=== PATIENT | female | born 1955 | race Hispanic/Latino ===

== ENCOUNTER 2017-05-02 12:42 | Outpatient (CLI) | payer BC ==
--- NOTE | 2017-05-02 13:22 | XRay Report ---
CHEST 2 VIEWS INDICATION: Cough, smoker. COMPARISON: 10/16/2013. FINDINGS: PA and lateral chest radiographs demonstrate normal cardiomediastinal silhouette. Clear lungs. Aortic knob calcifications. Demineralized bones with L1 kyphoplasty. CONCLUSION: No acute disease in the chest. Thank you for the opportunity to participate in this patient's care.
--- NOTE | 2017-05-04 15:05 | Mammography Report ---
BONE DENSITY STUDY: DEFINITIONS: BMD = Bone Mineral Density T-score = BMD related to mean peak bone mass of young adult (mean expressed in Standard Deviation) Z-score = Age matched BMD expressed in SD World Health Organization (WHO) Diagnostic Criteria Normal T-score > -1 SD Osteopenia T-score between -1 and -2.4 SD Osteoporosis T-score -2.5 SD or below FINDINGS: The weighted average BMD of lumbar spine L1-L4 is 1.020 with a T-score of -0.5. The weighted average BMD of hip is 0.896 with a T-score of -0.4. IMPRESSION: The patient's T-score is diagnostic for normal bone density and low relative risk for fracture. NOTE: BMD is not the only risk factor for fracture; also consider factors such as the patient's age, risk of falling, previous osteoporotic fracture, family history of osteoporotic fractures, current smoker, and low body weight. Trotter's triangle is a region of interest in femur, predominantly of trabecular bone. It is not a true anatomic site, and ISCD does not recommend its use clinically.
== END 2017-05-02 12:43 | disposition home or self-care (01) ==
LOC: XRAY 12:42
PROVIDERS: ATTEND Specialist
DX: R05 Cough (principal); M48.50XD Collapsed vertebra, not elsewhere classified, site unspecified, subsequent encounter for fracture with routine healing; I70.0 Atherosclerosis of aorta; F17.200 Nicotine dependence, unspecified, uncomplicated
CPT/HCPCS: 71020; 77080

== ENCOUNTER 2018-12-13 10:20 | Outpatient (CLI) | payer BC ==
--- NOTE | 2018-12-13 11:15 | XRay Report ---
CHEST 2 VIEWS INDICATION: Bronchitis. COMPARISON: 05/02/2017. FINDINGS: PA and lateral chest radiographs again demonstrate normal cardiomediastinal silhouette. Clear lungs. Stable demineralized bones with L1 kyphoplasty partially imaged. CONCLUSION: No acute disease in the chest. Thank you for the opportunity to participate in this patient's care.
== END 2018-12-13 10:21 | disposition home or self-care (01) ==
LOC: XRAY 10:20
PROVIDERS: ATTEND Specialist
DX: J40 Bronchitis, not specified as acute or chronic (principal); E78.00 Pure hypercholesterolemia, unspecified; K21.9 Gastro-esophageal reflux disease without esophagitis
CPT/HCPCS: 71046

== ENCOUNTER 2019-01-09 13:54 | Outpatient (CLI) | payer BC ==
--- NOTE | 2019-01-10 14:35 | Mammography Report ---
BILATERAL DIGITAL SCREENING MAMMOGRAM with CAD : 01/09/19 13:54:00 CLINICAL: Routine screening. COMPARISON:09/21/16 FINDINGS: The breasts are heterogeneously dense, which may obscure small masses. No mass, architectural distortion or suspicious calcifications. IMPRESSION: No mammographic evidence of malignancy. BI-RADS CATEGORY: 1 - - Negative RECOMMENDATION: Routine mammographic screening in one year. COMMENT: Patient follow-up letters are generated by our [employer] application.
== END 2019-01-09 13:55 | disposition home or self-care (01) ==
LOC: MAMMO 13:54
PROVIDERS: ATTEND Specialist
DX: Z12.31 Encounter for screening mammogram for malignant neoplasm of breast (principal); E78.00 Pure hypercholesterolemia, unspecified; K21.9 Gastro-esophageal reflux disease without esophagitis; M19.90 Unspecified osteoarthritis, unspecified site; Z90.49 Acquired absence of other specified parts of digestive tract; Z90.89 Acquired absence of other organs; Z90.710 Acquired absence of both cervix and uterus
CPT/HCPCS: 77067

== ENCOUNTER 2019-02-13 08:14 | Outpatient (CLI) | payer BC ==
[2019-02-13 09:05] LABS: Alanine Aminotransferase 21 units/L (7-56); BUN/Creatinine Ratio 23; Blood Urea Nitrogen 16 mg/dL (7-17); Calcium 9.4 mg/dL (8.4-10.2); Chol/HDL Ratio 4.25 %; HDL Cholesterol 43 mg/dL (40-59); Hemolysis Index 1; LDL Cholesterol,Direct 126 mg/dL (50-130)
== END 2019-02-13 08:15 | disposition home or self-care (01) ==
LOC: LAB 08:14
PROVIDERS: ATTEND Internal Medicine Cardiovascular Disease
DX: I25.119 Atherosclerotic heart disease of native coronary artery with unspecified angina pectoris (principal); E78.5 Hyperlipidemia, unspecified; E78.00 Pure hypercholesterolemia, unspecified; K21.9 Gastro-esophageal reflux disease without esophagitis; M19.90 Unspecified osteoarthritis, unspecified site; Z90.49 Acquired absence of other specified parts of digestive tract; Z79.899 Other long term (current) drug therapy; Z90.89 Acquired absence of other organs; Z90.710 Acquired absence of both cervix and uterus
CPT/HCPCS: 36415; 80053; 80061

== ENCOUNTER 2019-05-22 12:53 | Outpatient (CLI) | payer BC ==
--- NOTE | 2019-05-22 13:36 | XRay Report ---
ROUTINE CHEST, TWO VIEWS: HISTORY: Cough. The trachea, heart, mediastinal contour, lung velasquez and bony thorax are unremarkable. No significant change since 12/13/18. IMPRESSION: Unremarkable chest x-ray.
== END 2019-05-22 12:54 | disposition home or self-care (01) ==
LOC: XRAY 12:53
PROVIDERS: ATTEND Nurse Practitioner Family
DX: R05 Cough (principal); E78.00 Pure hypercholesterolemia, unspecified; K21.9 Gastro-esophageal reflux disease without esophagitis; Z90.710 Acquired absence of both cervix and uterus; Z90.89 Acquired absence of other organs
CPT/HCPCS: 71046

== ENCOUNTER 2019-07-29 12:51 | Inpatient (IN) | payer BC ==
--- NOTE | 2019-07-29 13:04 | Event Note ---
ED Screening Note Date of service: 07/29/19 Time: 13:03 ED Screening Note: 64 y o female presents with chest pain with radiation to neck and arms x yesterday took a nitro pill last night, come relief This initial assessment/diagnostic orders/clinical plan/treatment(s) is/are subject to change based on patients health status, clinical progression and re- assessment by fellow clinical providers in the ED. Further treatment and workup at subsequent clinical providers discretion. Patient/guardian urged not to elope from the ED as their condition may be serious if not clinically assessed and managed. Initial orders include: protocol main side eval
[2019-07-29] MEDS ORDERED: ASPIRIN PO ONE (13:06)
[2019-07-29 13:25] LABS: Basophils # (Auto) 0.1 K/mm3 (0.0-0.1); Basophils % (Auto) 0.7 % (0.0-1.8); Eosinophils # (Auto) 0.2 K/mm3 (0.0-0.4); Eosinophils % (Auto) 1.6 % (0.0-4.3); Hematocrit 40.2 % (30.3-42.9); Lymphocytes # (Auto) 3.2 K/mm3 (1.2-5.4); Lymphocytes % (Auto) 30.8 % (13.4-35.0); Mean Corpuscular HGB Conc 35 % (30-34); Mean Corpuscular Volume 95 fl (79-97); Monocytes # (Auto) 0.8 K/mm3 (0.0-0.8); Monocytes % (Auto) 7.7 % (0.0-7.3); Platelet Count 289 K/mm3 (140-440); Red Blood Count 4.22 M/mm3 (3.65-5.03); Red Cell Distribution Width 14.6 % (13.2-15.2)
--- NOTE | 2019-07-29 13:50 | XRay Report ---
CHEST 1 VIEW INDICATION / CLINICAL INFORMATION: Chest Pain. COMPARISON: 05/22/2019 FINDINGS: SUPPORT DEVICES: None. HEART / MEDIASTINUM: No significant abnormality. LUNGS / PLEURA: No significant pulmonary or pleural abnormality. No pneumothorax. ADDITIONAL FINDINGS: No significant additional findings. IMPRESSION: No acute pulmonary or pleural abnormality. No change from 05/22/2019. Signer Name: Jonathan Nathan MD FACMeron Signed: 07/29/2019 1:45 PM Workstation Name: [id number]
[2019-07-29 13:52] LABS: BUN/Creatinine Ratio 21; Blood Urea Nitrogen 15 mg/dL (7-17); Calcium 9.4 mg/dL (8.4-10.2); Hemolysis Index 13
[2019-07-29] MEDS ORDERED: NITROSTAT SL PRN (14:50)
[2019-07-29] MEDS ORDERED: ZOFRAN IV PRN ×2 (14:50→17:03)
--- NOTE | 2019-07-29 14:52 | Emergency Department Report ---
ED Chest Pain HPI - General Chief Complaint: Chest Pain Stated Complaint: CHEST/NECK PAIN Time Seen by Provider: 07/29/19 13:02 Source: patient, RN notes reviewed, old records reviewed Mode of arrival: Wheelchair Limitations: No Limitations - History of Present Illness Initial Comments: This is a 64-year-old female. This patient is not known to this provider previously. Her primary care doctor is Dr. Dias. Her primary care prefabricator is Dr. Israel Solis. Past medical history includes ischemic heart disease, ischemic cardiomyopathy, on permanent antiplatelet therapy, including aspirin, and Plavix. The patient endorses compliance with her medications. She endorses nontraumatic central and left-sided chest pain, burning, that radiates to the back, arm and neck. There is no vomiting. There is positive diaphoresis. The symptoms are somewhat improved with sublingual nitroglycerin. No recent cardiac catheterization since 2015. No recent cardiac stress test. Denies DVT, pulmonary embolus risk factors. Endorses compliance with medications. Denies other complaints. MD Complaint: chest pain, other -: Gradual, hour(s) Onset: during rest Pain Location: substernal, left chest Pain Radiation: back, neck Severity: moderate Quality: tightness, aching Consistency: intermittent Improves With: nitroglycerin, rest Worsens With: nothing Treatments Prior to Arrival: aspirin, nitroglycerin Aspirin use within the Past 7 Days: (1) Yes - Related Data Home Medications Medication Instructions Recorded Confirmed Last Taken Ibuprofen [Motrin 800 MG tab] 800 mg PO TID 02/05/16 02/05/16 02/03/16 800mg Metoprolol Tartrate 25 mg PO BID 02/05/16 02/05/16 02/05/16 25mg Nitroglycerin [Nitrostat] 0.4 mg SL PRN PRN 02/05/16 02/05/16 02/03/16 0.4mg PARoxetine HCl [PARoxetine] 40 mg PO DAILY 02/05/16 02/05/16 02/05/16 40mg lamoTRIgine [Lamotrigine] 25 mg PO BID 02/05/16 02/05/16 02/05/16 25mg Previous Rx's Medication Instructions Recorded Last Taken Type Aspirin EC 325 mg PO QDAY #30 tablet 02/06/16 Unknown Rx AtorvaSTATin [Lipitor] 40 mg PO QHS #30 tablet 02/06/16 Unknown Rx Prasugrel [Effient] 10 mg PO QDAY #30 tablet 02/06/16 Unknown Rx Allergies Allergy/AdvReac Type Severity Reaction Status Date / Time codeine Allergy Vomiting Verified 11/09/13 15:37 Penicillins Allergy Itching, Verified 11/09/13 15:37 HIVES Sulfa (Sulfonamide Allergy Itching Verified 11/09/13 15:37 Antibiotics) HIVES Heart Score - HEART Score History: Highly suspicious EKG: Non-specific Age: 45-65 Risk factors: > 3 risk factors or hx of atherosclerotic disease Troponin: < normal limit HEART Score: 6 - Critical Actions Critical Actions: 4-6 pts:12-16.6% risk of adverse cardiac event. Should be admitted ED Review of Systems ROS: Stated complaint: CHEST/NECK PAIN Other details as noted in HPI Constitutional: denies: fever Eyes: denies: eye discharge ENT: denies: congestion Respiratory: denies: cough, wheezing Cardiovascular: chest pain Gastrointestinal: denies: vomiting Genitourinary: denies: dysuria Musculoskeletal: denies: back pain Skin: denies: lesions Neurological: denies: weakness Psychiatric: denies: anxiety ED Past Medical Hx - Past Medical History Hx Hypertension: No Hx Heart Attack/AMI: No Hx Congestive Heart Failure: No Hx Diabetes: No Hx GERD: Yes Hx Arthritis: Yes (back) Hx Seizures: Yes (10/14/13 - had one seizure) Hx Psychiatric Treatment: Yes (depression) Hx Asthma: No Hx COPD: No Additional medical history: 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 - Surgical History Hx Coronary Stent: Yes Hx Appendectomy: Yes Additional Surgical History: Hysterectomy and spinal tumor - Social History Smoking Status: Current Every Day Smoker Substance Use Type: None - Medications Home Medications: Home Medications Medication Instructions Recorded Confirmed Last Taken Type Ibuprofen [Motrin 800 MG tab] 800 mg PO TID 02/05/16 02/05/16 02/03/16 History 800mg Metoprolol Tartrate 25 mg PO BID 02/05/16 02/05/16 02/05/16 History 25mg Nitroglycerin [Nitrostat] 0.4 mg SL PRN PRN 02/05/16 02/05/16 02/03/16 History 0.4mg PARoxetine HCl [PARoxetine] 40 mg PO DAILY 03/09/1202/05/16 02/05/16 History 40mg lamoTRIgine [Lamotrigine] 25 mg PO BID 02/05/16 02/05/16 02/05/16 History 25mg Aspirin EC 325 mg PO QDAY #30 tablet 02/06/16 Unknown Rx AtorvaSTATin [Lipitor] 40 mg PO QHS #30 tablet 02/06/16 Unknown Rx Prasugrel [Effient] 10 mg PO QDAY #30 tablet 02/06/16 Unknown Rx ED Physical Exam - General Limitations: No Limitations General appearance: alert, in no apparent distress - Head Head exam: Present: atraumatic, normocephalic - Eye Eye exam: Present: normal appearance, EOMI. Absent: nystagmus - ENT ENT exam: Present: normal exam, normal orophraynx, mucous membranes moist, normal external ear exam - Neck Neck exam: Present: normal inspection, full ROM. Absent: tenderness, meningismus - Respiratory Respiratory exam: Present: normal lung sounds bilaterally. Absent: respiratory distress - Cardiovascular Cardiovascular Exam: Present: regular rate, normal rhythm, normal heart sounds. Absent: bradycardia, tachycardia, irregular rhythm, systolic murmur, diastolic murmur, rubs, gallop - GI/Abdominal GI/Abdominal exam: Present: soft. Absent: distended, tenderness, rigid, pulsat ile mass - Extremities Exam Extremities exam: Present: normal inspection, full ROM, other (2+ pulses noted in the bilateral upper, lower extremities. There is no long bony tenderness. The pelvis is stable. Muscular compartments are soft. There is no redness, pus, streaking or crepitus noted.). Absent: pedal edema, joint swelling, calf tenderness - Back Exam Back exam: Present: normal inspection, full ROM. Absent: tenderness, CVA tenderness (R), CVA tenderness (L), paraspinal tenderness, vertebral tenderness - Neurological Exam Neurological exam: Present: alert, oriented X3, normal gait, other (Extraocular movements are intact bilaterally. There is no facial droop. The tongue is midline. Patient speaking in full complete sentences. There is no dysphonia. Hearing is grossly intact bilaterally. Shoulder shrug is intact bilaterally. 5/5 strength bilateral upper, lower extremities. Sensation is intact to light touch bilateral upper, lower extremities.). Absent: motor sensory deficit - Psychiatric Psychiatric exam: Present: anxious - Skin Skin exam: Present: warm, dry, intact, normal color. Absent: rash ED Course Vital Signs 07/29/19 07/29/19 07/29/19 13:02 15:30 15:31 Temperature 98.4 F Pulse Rate 68 78 87 Respiratory 18 18 Rate Blood Pressure 150/63 145/62 Blood Pressure 145/72 [Right] O2 Sat by Pulse 99 100 Oximetry SHAYAN score - Shayan Score Age > 65: (0) No Aspirin use within the Past 7 Days: (1) Yes 3 or more CAD Risk Factors: (1) Yes 2 or more Angina events in past 24 hrs: (1) Yes Known CAD with more than 50% Stenosis: (1) Yes Elevated Cardiac Markers: (0) No ST Deviation Greater than 0.5mm: (0) No SHAYAN Score: 4 ED Medical Decision Making - Lab Data Result diagrams: 07/29/19 13:08 07/29/19 13:08 Vital Signs 07/29/19 07/29/19 07/29/19 13:02 15:30 15:31 Temperature 98.4 F Pulse Rate 68 78 87 Respiratory 18 18 Rate Blood Pressure 150/63 145/62 Blood Pressure 145/72 [Right] O2 Sat by Pulse 99 100 Oximetry Lab Results 07/29/19 07/29/19 07/29/19 Range/Units 13:08 13:08 15:02 WBC 10.4 (4.5-11.0) K/mm3 RBC 4.22 (3.65-5.03) M/mm3 Hgb 14.0 (10.1-14.3) gm/dl Hct 40.2 (30.3-42.9) % MCV 95 (79-97) fl MCH 33 H (28-32) pg MCHC 35 H (30-34) % RDW 14.6 (13.2-15.2) % Plt Count 289 (140-440) K/mm3 Lymph % (Auto) 30.8 (13.4-35.0) % Miller % (Auto) 7.7 H (0.0-7.3) % Eos % (Auto) 1.6 (0.0-4.3) % Baso % (Auto) 0.7 (0.0-1.8) % Lymph # 3.2 (1.2-5.4) K/mm3 Miller # 0.8 (0.0-0.8) K/mm3 Eos # 0.2 (0.0-0.4) K/mm3 Baso # 0.1 (0.0-0.1) K/mm3 Seg Neutrophils % 59.2 (40.0-70.0) % Seg Neutrophils # 6.1 (1.8-7.7) K/mm3 Sodium 141 (137-145) mmol/L Potassium 3.7 (3.6-5.0) mmol/L Chloride 103.1 (98-107) mmol/L Carbon Dioxide 20 L (22-30) mmol/L Anion Gap 22 mmol/L BUN 15 (7-17) mg/dL Creatinine 0.7 (0.7-1.2) mg/dL Estimated GFR > 60 ml/min BUN/Creatinine Ratio 21 % Glucose 128 H (65-100) mg/dL Calcium 9.4 (8.4-10.2) mg/dL Magnesium 1.90 (1.7-2.3) mg/dL Total Creatine Kinase 84 (30-135) units/L Troponin T < 0.010 (0.00-0.029) ng/mL 07/29/19 Range/Units 15:53 WBC (4.5-11.0) K/mm3 RBC (3.65-5.03) M/mm3 Hgb (10.1-14.3) gm/dl Hct (30.3-42.9) % MCV (79-97) fl MCH (28-32) pg MCHC (30-34) % RDW (13.2-15.2) % Plt Count (140-440) K/mm3 Lymph % (Auto) (13.4-35.0) % Miller % (Auto) (0.0-7.3) % Eos % (Auto) (0.0-4.3) % Baso % (Auto) (0.0-1.8) % Lymph # (1.2-5.4) K/mm3 Miller # (0.0-0.8) K/mm3 Eos # (0.0-0.4) K/mm3 Baso # (0.0-0.1) K/mm3 Seg Neutrophils % (40.0-70.0) % Seg Neutrophils # (1.8-7.7) K/mm3 Sodium (137-145) mmol/L Potassium (3.6-5.0) mmol/L Chloride (98-107) mmol/L Carbon Dioxide (22-30) mmol/L Anion Gap mmol/L BUN (7-17) mg/dL Creatinine (0.7-1.2) mg/dL Estimated GFR ml/min BUN/Creatinine Ratio % Glucose (65-100) mg/dL Calcium (8.4-10.2) mg/dL Magnesium (1.7-2.3) mg/dL Total Creatine Kinase (30-135) units/L Troponin T < 0.010 (0.00-0.029) ng/mL - EKG Data -: EKG Interpreted by Me EKG shows normal: sinus rhythm Rate: normal - EKG Data 07/29/19 17:04 This is a sinus rhythm, but this 65 bpm, normal axis, QTC is prolonged, there is motion artifact, the EKG is not consistent with ST elevation myocardial infarction - Radiology Data Radiology results: report reviewed, image reviewed X-ray of the chest is negative for acute disease. - Medical Decision Making Differential diagnosis, including not limited to: GERD, gastritis, hiatal hernia, pneumonia, costochondritis, stable angina, unstable angina Assessment and plan: 64-year-old female who is not tachycardic, not hypoxic, low risk by well's criteria, no pulmonary embolus emergently to risk factors, strong cardiac history, with probable worsening stable angina. The patient is afebrile with reassuring vital signs, and appears comfortable at this time. EKG abnormal, however, unchanged from prior. She is basically pain-free at this time. Contacted cardiology legal secretary receptionist, Dr Mandujano., who is in agreement with symptom control and medical management, nothing by mouth after midnight, no recommendation for anticoagulation at this time, which I agree with, and indicates his group will evaluate the patient in the morning, and decide on a cardiac risk stratification strategy. Contacted Hospital physician, Dr Meron Perez who will admit the patient, discussed plan of care for admission with the patient and family, who are amenable to this plan of care. Critical care attestation.: If time is entered above; I have spent that time in minutes in the direct care of this critically ill patient, excluding procedure time. ED Disposition Clinical Impression: Acute chest pain, Angina at rest, CAD (coronary artery disease) Disposition: DC-09 OP ADMIT IP TO THIS HOSP Is pt being admited?: Yes Does the pt Need Aspirin: No (took today already) Condition: Good Instructions: Angina (ED), Chest Pain (ED) Referrals: TREE DIAS FNP [Primary Care Provider] - 3-5 Days
--- NOTE | 2019-07-29 15:19 | History and Physical Report ---
History of Present Illness Chief complaint: My chest hurts History of present illness: 64 YO Female with Obesity, HTN, GERD, OA, Seizure Disorder, Depression, LDD, CAD S/P Stent Placement on DAPT, Nicotine Dependence presents to ED for evaluation. Pt states that she has experienced pain in her chest over the past 1 day with persistently worsening symptoms over the past 6 hours. Pt states that her pain in 5-6/10, localized to the left side of her chest with radiation to the left arm, back as well as the left side of her neck. Pt acknowledges diaphoresis, decreased exercise tolerance, dypsnea with exertion, as well as mild dypsnea at rest. Pt symptoms worsened with exertion, relieved with rest, as well as reliev ed with nitro. Pt transported to [facility] via private vehicle. Pt seen and evaluated in ED and found to have Angina as well as symptoms consistent with CHF. Pt admitted to telemetry. Cardiology consulted in ED. Pt denies fever, chills, palpitations, NVD, productive cough, hemoptysis, unilateral leg swelling, prolonged travel/immobility, Individual/Family history of DVT/PE/Bleeding/Blood Clotting Disorders, skin rash, or recent ill contacts. Prior admission on 10/14/13 reviewed. All listed medication reconciled at time of admission. Past History Past Medical History: arthritis, GERD, seizures, other (Depression) Past Surgical History: appendectomy, hysterectomy, Other (Cardiac stent, Back surery) Social history: , lives with family, smoking Family history: CAD, hypertension Medications and Allergies Allergies Allergy/AdvReac Type Severity Reaction Status Date / Time codeine Allergy Vomiting Verified 11/09/13 15:37 Penicillins Allergy Itching, Verified 11/09/13 15:37 HIVES Sulfa (Sulfonamide Allergy Itching Verified 11/09/13 15:37 Antibiotics) HIVES Home Medications Medication Instructions Recorded Confirmed Last Taken Type Ibuprofen [Motrin 800 MG tab] 800 mg PO TID 02/05/16 02/05/16 02/03/16 History 800mg Metoprolol Tartrate 25 mg PO BID 02/05/16 02/05/16 02/05/16 History 25mg Nitroglycerin [Nitrostat] 0.4 mg SL PRN PRN 02/05/16 02/05/16 02/03/16 History 0.4mg PARoxetine HCl [PARoxetine] 40 mg PO DAILY 02/05/16 02/05/16 02/05/16 History 40mg lamoTRIgine [Lamotrigine] 25 mg PO BID 02/05/16 02/05/16 02/05/16 History 25mg Aspirin EC 325 mg PO QDAY #30 tablet 02/06/16 Unknown Rx AtorvaSTATin [Lipitor] 40 mg PO QHS #30 tablet 02/06/16 Unknown Rx Prasugrel [Effient] 10 mg PO QDAY #30 tablet 02/06/16 Unknown Rx Active Meds: Active Medications Nitroglycerin (Nitrostat) 0.4 mg SL .Q5MIN PRN PRN Reason: Chest Pain Ondansetron HCl (Zofran) 4 mg IV Q6HR PRN PRN Reason: Nausea Review of Systems Constitutional: no weight loss, no weight gain, no fever, no chills Ears, nose, mouth and throat: no ear pain, no ear discharge, no tinnitis, no decreased hearing, no nose pain, no nasal congestion, no nasal discharge Breasts: no change in shape, no swelling, no mass Cardiovascular: chest pain, shortness of breath, dyspnea on exertion, decreased exercise tolerance, no orthopnea, no palpitations, no rapid/irregular heart beat Respiratory: no cough, no cough with sputum, no excessive sputum, no hemoptysis Gastrointestinal: no nausea, no vomiting, no diarrhea, no constipation Genitourinary Female: no pelvic pain, no flank pain, no menorrhagia, no dysuria, no urinary frequency, no urgency Rectal: no pain, no incontinence, no bleeding Musculoskeletal: no neck stiffness, no neck pain, no shooting arm pain, no shooting leg pain, no leg numbness/tingling Integumentary: no rash, no pruritis, no redness, no sores, no jaundice, no boils Neurological: no head injury, no transient paralysis, no weakness, no parathesias, no tingling, no seizures, no tremors Psychiatric: no anxiety, no memory loss, no change in sleep habits, no insomnia, no hypersomnia, no change in appetite, no change in libido, no disorientation Endocrine: no cold intolerance, no heat intolerance, no polyphagia, no excessive thirst, no polydipsia Hematologic/Lymphatic: no easy bruising, no easy bleeding, no lymphadenopathy, no lymphedema Allergic/Immunologic: no urticaria, no allergic rhinitis, no anaphylaxis, no angioedema Exam - Constitutional Vitals: Temp Pulse Resp BP Pulse Ox 98.4 F 68 18 150/63 99 07/29/19 13:02 07/29/19 13:02 07/29/19 13:02 07/29/19 13:02 07/29/19 13:02 General appearance: Present: mild distress, obese - EENT Eyes: Present: PERRL ENT: hearing intact, clear oral mucosa - Neck Neck: Present: supple, normal ROM - Respiratory Respiratory effort: normal Respiratory: bilateral: CTA - Cardiovascular Heart Sounds: Present: S1 & S2. Absent: rub, click - Extremities Extremities: pulses symmetrical, No edema Peripheral Pulses: within normal limits - Abdominal General gastrointestinal: Present: soft, non-tender, non-distended, normal bowel sounds Female genitourinary: Present: normal - Integumentary Integumentary: Present: clear, warm, dry - Musculoskeletal Musculoskeletal: gait normal, strength equal bilaterally - Psychiatric Psychiatric: appropriate mood/affect, intact judgment & insight - Neurologic Neurologic: CNII-XII intact, moves all extremities Results - Labs CBC & Chem 7: 07/29/19 13:08 07/29/19 13:08 Labs: Abnormal lab results 07/29/19 07/29/19 Range/Units 13:08 13:08 MCH 33 H (28-32) pg MCHC 35 H (30-34) % Castro % (Auto) 7.7 H (0.0-7.3) % Carbon Dioxide 20 L (22-30) mmol/L Glucose 128 H (65-100) mg/dL Assessment and Plan - Patient Problems (1) CHF (congestive heart failure) Current Visit: Yes Status: Acute Qualifiers: Heart failure type: diastolic Heart failure chronicity: acute Qualified Code(s): I50.31 - Acute diastolic (congestive) heart failure Plan to address problem: Admit to telemetry, Echo, BNP, thyroid panel, magnesium level, cardiology consulted in ED, chest x ray, supplemental oxygen, strict I/O, daily weight, blood pressure control. (2) Angina at rest Current Visit: No Status: Acute Plan to address problem: serial cardiac enzymes, ekg, telemetry monitoring, cardiology consulted in ED for further cardiac testing, morphine, supplemental oxygen, nitro, aspirin. (3) Nicotine dependence unspecified, with withdrawal Current Visit: Yes Status: Acute Qualifiers: Nicotine product type: cigarettes Qualified Code(s): F17.213 - Nicotine dependence, cigarettes, with withdrawal Plan to address problem: Smoking cessation counseling +15 minutes, supportive care. (4) GERD (gastroesophageal reflux disease) Current Visit: Yes Status: Acute Qualifiers: Esophagitis presence: without esophagitis Qualified Code(s): K21.9 - Gastro-esophageal reflux disease without esophagitis Plan to address problem: PPI therapy, supportive care. (5) Osteoarthritis Current Visit: Yes Status: Acute Plan to address problem: NSAID therapy, supportive care. (6) Seizure disorder Current Visit: Yes Status: Acute Plan to address problem: continue current therapy, supportive care. (7) Depression Current Visit: Yes Status: Acute Qualifiers: Major depression episode severity: unspecified Plan to address problem: Supportive care, continue medical management (8) CAD (coronary artery disease) Current Visit: No Status: Acute Qualifiers: Associated angina: with stable angina Plan to address problem: risk factor reduction therapy, lipid panel, statin therapy, antiplatelet therpay, (9) DVT prophylaxis Current Visit: Yes Status: Acute Plan to address problem: SCD to BLE while in bed, Pt ambulatory
[2019-07-29] MEDS ORDERED: ASPIRIN ONE (15:22)
[2019-07-29] MEDS ORDERED: TYLENOL PO PRN (17:03)
[2019-07-29] MEDS ORDERED: PROVENTIL IH PRN (17:03)
[2019-07-29] MEDS ORDERED: BABY ASPIRIN PO STA (17:03)
[2019-07-29] MEDS ORDERED: SODIUM CHLORIDE FLUSH SYRINGE 10 ML IV PRN ×2 (17:03)
[2019-07-29] MEDS ORDERED: BABY ASPIRIN ONE (18:22)
[2019-07-29 21:05] LABS: Free T4 (Free Thyroxine) 0.78 ng/dL (0.76-1.46)
[2019-07-29] MEDS: XANAX PO SCH (22:14)
[2019-07-29] MEDS: IBUPROFEN PO SCH (22:15)
[2019-07-29] MEDS: SODIUM CHLORIDE FLUSH SYRINGE 10 ML IV SCH (22:18)
[2019-07-29] MEDS: LOPRESSOR PO SCH (22:19)
[2019-07-29] MEDS: LaMICtal PO SCH (22:45)
[2019-07-30 02:54] LABS: Chol/HDL Ratio 3.97 %
[2019-07-30 03:33] LABS: Basophils # (Auto) 0.1 K/mm3 (0.0-0.1); Basophils % (Auto) 0.8 % (0.0-1.8); Eosinophils # (Auto) 0.2 K/mm3 (0.0-0.4); Eosinophils % (Auto) 2.1 % (0.0-4.3); Hematocrit 39.9 % (30.3-42.9); Hemoglobin 13.7 gm/dl (10.1-14.3); Lymphocytes # (Auto) 4.3 K/mm3 (1.2-5.4); Lymphocytes % (Auto) 45.6 % (13.4-35.0); Mean Corpuscular HGB Conc 34 % (30-34); Mean Corpuscular Volume 95 fl (79-97); Monocytes % (Auto) 10.5 % (0.0-7.3); Platelet Count 263 K/mm3 (140-440); Red Blood Count 4.19 M/mm3 (3.65-5.03); Red Cell Distribution Width 14.3 % (13.2-15.2)
[2019-07-30 04:32] LABS: Alanine Aminotransferase 14 units/L (7-56); Albumin 4.1 g/dL (3.9-5); BUN/Creatinine Ratio 19; Blood Urea Nitrogen 13 mg/dL (7-17); Calcium 9.1 mg/dL (8.4-10.2); Hemolysis Index 10
[2019-07-30] MEDS ORDERED: LEXISCAN IV ONE (09:00)
[2019-07-30] MEDS ORDERED: PAXIL PO SCH (10:00)
[2019-07-30] MEDS ORDERED: EFFIENT PO SCH (10:00)
[2019-07-30] MEDS ORDERED: NON-FORMULARY (Paroxetine Hcl [Paroxetine] 40 MG) PO SCH (10:00)
[2019-07-30] MEDS: IBUPROFEN PO SCH ×2 (12:39→14:28)
[2019-07-30] MEDS: XANAX PO SCH (12:39)
[2019-07-30] MEDS: LOPRESSOR PO SCH (12:39)
[2019-07-30] MEDS: LaMICtal PO SCH (12:39)
[2019-07-30] MEDS: SODIUM CHLORIDE FLUSH SYRINGE 10 ML IV SCH (12:40)
[2019-07-30 15:37] VITALS: BP 152/72
--- NOTE | 2019-07-30 16:04 | Discharge Summary ---
Providers - Providers Date of Admission: 07/29/19 17:03 Date of discharge: 07/30/19 Attending physician: CONNIE GRIDER 07/29/19 Consult to Cardiac Rehabilitation [CONS] Routine Reason For Exam: Phase I 07/29/19 14:49 Consult to Physician [CONS] Stat Comment: Consulting Provider: EDGARDO MCGRAW Physician Instructions: Reason For Exam: acs chest pain Primary care physician: MICHELLE GRESHAM Hospitalization Condition: Good Disposition: DC-30 STILL A PATIENT Exam - Constitutional Vitals: Temp Pulse Resp BP Pulse Ox 98.2 F 78 18 152/72 96 07/30/19 15:35 07/30/19 15:35 07/30/19 15:35 07/30/19 15:35 07/30/19 15:35 Plan Follow up with: TREE FLEMING FNP [Primary Care Provider] - 3-5 Days
--- NOTE | 2019-07-30 16:43 | Consultation ---
History of Present Illness Consult date: 07/30/19 Consult reason: chest pain History of present illness: 64-year-old woman admitted with chest pain. She has a history of coronary ar perez disease, 3 years ago, a drug-eluting stent was implanted in her mid right coronary artery. The left coronary system was without significant disease. She has followed up on a regular basis with her primary welder tech Dr. Reza Solis. On this presentation, she describes substernal chest pain radiating to the neck, which was not reliably exertional, but she was concerned and presented to the emergency room. The ECG was normal sinus rhythm, normal ECG. Cardiac isoenzymes were negative. Further workup done today includes a Lexiscan thallium stress test which was normal. An echocardiogram showed normal left ventricle systolic function, ejection fraction 55-60%, mild mitral and mild tricuspid regurgitation. Past History Past Medical History: arthritis, CAD, GERD, seizures, other (Depression) Past Surgical History: appendectomy, hysterectomy, Other (Cardiac stent, Back surery) Social history: , lives with family, smoking Family history: CAD, hypertension Medications and Allergies Allergies Allergy/AdvReac Type Severity Reaction Status Date / Time codeine Allergy Vomiting Verified 11/09/13 15:37 Penicillins Allergy Itching, Verified 11/09/13 15:37 HIVES Sulfa (Sulfonamide Allergy Itching Verified 11/09/13 15:37 Antibiotics) HIVES Home Medications Medication Instructions Recorded Confirmed Last Taken Type Ibuprofen [Motrin 800 MG tab] 800 mg PO TID 02/05/16 07/30/19 07/29/19 History Metoprolol Tartrate 25 mg PO BID 02/05/16 07/30/19 07/29/19 History Nitroglycerin [Nitrostat] 0.4 mg SL PRN PRN 02/05/16 07/30/19 02/03/16 History 0.4mg PARoxetine HCl [PARoxetine] 40 mg PO DAILY 02/05/16 07/30/19 07/29/19 History lamoTRIgine [Lamotrigine] 25 mg PO BID 02/05/16 07/30/19 07/29/19 History Aspirin EC 325 mg PO QDAY #30 tablet 02/06/16 07/30/19 07/29/19 Rx AtorvaSTATin [Lipitor] 40 mg PO QHS #30 tablet 02/06/16 07/30/1907/29/19 Rx Prasugrel [Effient] 10 mg PO QDAY #30 tablet 02/06/16 07/30/19 07/29/19 Rx Active Meds: Active Medications Acetaminophen (Tylenol) 650 mg PO Q4H PRN PRN Reason: Pain MILD(1-3)/Fever >100.5/BULL Albuterol (Proventil) 2.5 mg IH Q4HRT PRN PRN Reason: Shortness Of Breath Alprazolam (Xanax) 0.25 mg PO Q12HR [facility] Last Admin: 07/30/19 12:39 Dose: 0.25 mg Documented by: Aspirin (Ecotrin) 325 mg PO QDAY [facility] Atorvastatin Calcium (Lipitor) 40 mg PO QHS [facility] Last Admin: 07/29/19 22:14 Dose: 40 mg Documented by: Ibuprofen (Ibuprofen) 800 mg PO TID [facility] Last Admin: 07/30/19 14:28 Dose: Not Given Documented by: Lamotrigine (Lamictal) 25 mg PO BID [facility] Last Admin: 07/30/19 12:39 Dose: 25 mg Documented by: Metoprolol Tartrate (Lopressor) 25 mg PO BID [facility] Last Admin: 07/30/19 12:39 Dose: Not Given Documented by: Nitroglycerin (Nitrostat) 0.4 mg SL .Q5MIN PRN PRN Reason: Chest Pain Last Admin: 07/29/19 15:30 Dose: 0.4 mg Documented by: Ondansetron HCl (Zofran) 4 mg IV Q8H PRN PRN Reason: Nausea And Vomiting Paroxetine HCl (Paxil) 40 mg PO DAILY [facility] Last Admin: 07/30/19 12:39 Dose: 40 mg Documented by: Prasugrel (Effient) 10 mg PO QDAY [facility] Last Admin: 07/30/19 12:39 Dose: 10 mg Documented by: Sodium Chloride (Sodium Chloride Flush Syringe 10 Ml) 10 ml IV BID [facility] Last Admin: 07/30/19 12:40 Dose: 10 ml Documented by: Sodium Chloride (Sodium Chloride Flush Syringe 10 Ml) 10 ml IV PRN PRN PRN Reason: LINE FLUSH Review of Systems Cardiovascular: chest pain, no orthopnea, no palpitations, no rapid/irregular heart beat, no edema, no syncope, no lightheadedness, no shortness of breath Physical Examination Vital Signs Temp Pulse Resp BP Pulse Ox 98.4 F 68 18 150/63 99 07/29/19 13:02 07/29/19 13:02 07/29/19 13:02 07/29/19 13:02 07/29/19 13:02 General appearance: no acute distress HEENT: Positive: PERRL Neck: Positive: neck supple Cardiac: Positive: Reg Rate and Rhythm Lungs: Positive: clear to auscultation Neuro: Positive: Grossly Intact Abdomen: Positive: Soft Female genitourinary: deferred Skin: Positive: Clear Extremities: Absent: edema Results 07/30/19 03:00 07/30/19 03:00 Cardiac Enzymes 07/30/19 Range/Units 03:00 AST 15 (5-40) units/L Lipids 07/29/19 Range/Units 19:18 Triglycerides 267 H (2-149) mg/dL Cholesterol 151 (50-199) mg/dL HDL Cholesterol 38 L (40-59) mg/dL Cholesterol/HDL Ratio 3.97 % CBC 07/30/19 Range/Units 03:00 WBC 9.5 (4.5-11.0) K/mm3 RBC 4.19 (3.65-5.03) M/mm3 Hgb 13.7 (10.1-14.3) gm/dl Hct 39.9 (30.3-42.9) % Plt Count 263 (140-440) K/mm3 Lymph # 4.3 (1.2-5.4) K/mm3 Phillips # 1.0 H (0.0-0.8) K/mm3 Eos # 0.2 (0.0-0.4) K/mm3 Baso # 0.1 (0.0-0.1) K/mm3 Comprehensive Metabolic Panel 07/30/19 Range/Units 03:00 Sodium 143 (137-145) mmol/L Potassium 3.4 L (3.6-5.0) mmol/L Chloride 104.1 (98-107) mmol/L Carbon Dioxide 22 (22-30) mmol/L BUN 13 (7-17) mg/dL Creatinine 0.7 (0.7-1.2) mg/dL Glucose 95 (65-100) mg/dL Calcium 9.1 (8.4-10.2) mg/dL AST 15 (5-40) units/L ALT 14 (7-56) units/L Alkaline Phosphatase 117 (35-129) units/L Total Protein 7.2 (6.3-8.2) g/dL Albumin 4.1 (3.9-5) g/dL EKG interpretations - Telemetry EKG Rhythm: Sinus Rhythm Assessment and Plan - Patient Problems (1) Chest pain Current Visit: Yes Status: Acute Plan to address problem: Patient is admitted with chest pain, serial ECGs and cardiac enzymes were negative. Echocardiogram was normal left ventricular systolic function, ejection fraction 55-60%. A Lexiscan thallium stress test done today was normal. Okay to discharge continue aggressive risk factor modification and medical therapy for her history of coronary artery disease and prior coronary stent. Follow-up with Dr. Reza Solis in 5-7 days, and return immediately to the em ergency room if any further chest pain.
[2019-07-30] MEDS ORDERED: ECOTRIN PO SCH (17:00)
--- NOTE | 2019-07-30 17:05 | Discharge Summary ---
Providers - Providers Date of Admission: 07/29/19 17:03 Date of discharge: 07/30/19 Attending physician: CONNIE GRIDER 07/29/19 Consult to Cardiac Rehabilitation [CONS] Routine Reason For Exam: Phase I 07/29/19 14:49 Consult to Physician [CONS] Stat Comment: Consulting Provider: EDGARDO SOLIS Physician Instructions: Reason For Exam: acs chest pain Primary care physician: MICHELLE GRESHAM Hospitalization Condition: Good Disposition: DC-01 TO HOME OR SELFCARE Core Measure Documentation - Palliative Care Palliative Care/ Comfort Measures: Not Applicable - Core Measures Any of the following diagnoses?: none Exam - Constitutional Vitals: Temp Pulse Resp BP Pulse Ox 98.2 F 78 18 152/72 96 07/30/19 15:35 07/30/19 15:35 07/30/19 15:35 07/30/19 15:35 07/30/19 16:00 Plan Activity: advance as tolerated Diet: low fat, low cholesterol, low salt Plan of Treatment: 1.Follow up with PCP in 1 week. 2.Follow up with Dr. Edgardo Solis in 5-7 days 3.Return to ED if any more chest pain Follow up with: TREE FLEMING FNP [Primary Care Provider] - 3-5 Days Prescriptions: Pantoprazole [Protonix] 40 mg PO QDAY #30 tablet
--- NOTE | 2019-07-30 22:29 | Treadmill Report ---
THALLIUM STRESS TEST LEFT VENTRICLE: Left ventricular chamber size was within normal spread. Perfusion study demonstrates homogeneous uptake of the tracer in all segments, no significant defects identified. Gated analysis demonstrates normal left ventricular systolic function, ejection fraction 65%. CONCLUSION: Normal myocardial perfusion study. JOB# [id number] CA/NTS
== END 2019-07-30 19:01 | disposition home or self-care (01) | DRG 291 ==
LOC: ED 12:51 → 4A 17:03 → EEVIPCON 17:03
PROVIDERS: ADMIT Internal Medicine; ATTEND Internal Medicine
DX: I11.0 Hypertensive heart disease with heart failure (principal); I50.31 Acute diastolic (congestive) heart failure; F17.213 Nicotine dependence, cigarettes, with withdrawal; I25.5 Ischemic cardiomyopathy; M19.90 Unspecified osteoarthritis, unspecified site; F32.9 Major depressive disorder, single episode, unspecified; R07.89 Other chest pain; I25.119 Atherosclerotic heart disease of native coronary artery with unspecified angina pectoris; E66.9 Obesity, unspecified; I34.0 Nonrheumatic mitral (valve) insufficiency; G40.909 Epilepsy, unspecified, not intractable, without status epilepticus; Z95.5 Presence of coronary angioplasty implant and graft; Z88.0 Allergy status to penicillin; Z88.2 Allergy status to sulfonamides; Z88.5 Allergy status to narcotic agent; Z68.35 Body mass index [BMI] 35.0-35.9, adult; Z79.82 Long term (current) use of aspirin; Z90.710 Acquired absence of both cervix and uterus
CPT/HCPCS: 36415; 71045; 78452; 80048; 80053; 80061; 82550; 83735; 83880; 84439; 84443; 84484; 85025; 93005; 93010; 93017; 93306; 99406; G0378; A9270-GY; A9502; J2405; J2785

== ENCOUNTER 2020-09-11 07:34 | Outpatient (CLI) | payer BC ==
--- NOTE | 2020-09-11 10:40 | Mammography Report ---
DIGITAL SCREENING MAMMOGRAM WITH CAD, 09/11/2020 INDICATION: Routine screening mammography. TECHNIQUE: Digital bilateral 2D mammography was obtained in the craniocaudal and mediolateral obliq ue projections. This examination was interpreted with the benefit of Computer-Aided Detection analysi s. COMPARISON: 01/09/2019, 09/21/2016 FINDINGS: Breast Density: The breasts are heterogeneously dense, which may obscure small masses. There is no evidence of dominant mass, suspicious calcifications or architectural distortion in eithe r breast. There have been no significant interval changes. IMPRESSION: Follow up recommendation: Routine yearly BI-RADS Category 1: Negative. A "normal" or negative report should not discourage follow up or biopsy of a clinically significant f inding. A written summary of these findings will be mailed to the patient. The patient will be entered into a mammography reporting system which will generate a reminder letter for the patient's next appointmen t at the appropriate interval. The [employer] recommends yearly mammograms starting at age 40 and continuing as l jaron as a woman is in good health. Breast MRI is recommended for women with an approximate 20-25% or greater lifetime risk of breast cancer, including women with a strong family history of breast or ova serg cancer or who have been treated for Hodgkin's disease. Signer Name: Galdino Dunaway MD Signed: 09/11/2020 10:36 AM Workstation Name: [id number]
== END 2020-09-11 07:35 | disposition home or self-care (01) ==
LOC: MAMMO 07:34
PROVIDERS: ATTEND Nurse Practitioner Family
DX: Z12.31 Encounter for screening mammogram for malignant neoplasm of breast (principal)
CPT/HCPCS: 77067

== ENCOUNTER 2020-12-12 10:35 | Outpatient (CLI) | payer BC ==
[2020-12-12 11:46] LABS: Chol/HDL Ratio 4.46 %
== END 2020-12-12 10:36 | disposition home or self-care (01) ==
LOC: LAB 10:35
PROVIDERS: ATTEND Internal Medicine Cardiovascular Disease
DX: I25.119 Atherosclerotic heart disease of native coronary artery with unspecified angina pectoris (principal)
CPT/HCPCS: 36415; 80061

== ENCOUNTER 2021-02-10 06:23 | Observation (INO) | payer BC ==
[2021-02-10 07:40] LABS: Basophils # (Auto) 0.1 K/mm3 (0.0-0.1); Basophils % (Auto) 0.5 % (0.0-1.8); Eosinophils # (Auto) 0.2 K/mm3 (0.0-0.4); Eosinophils % (Auto) 1.8 % (0.0-4.3); Hematocrit 43.6 % (30.3-42.9); Hemoglobin 14.9 gm/dl (10.1-14.3); Lymphocytes # (Auto) 3.8 K/mm3 (1.2-5.4); Lymphocytes % (Auto) 33.1 % (13.4-35.0); Mean Corpuscular HGB Conc 34 % (30-34); Mean Corpuscular Volume 95 fl (79-97); Monocytes # (Auto) 1.1 K/mm3 (0.0-0.8); Monocytes % (Auto) 9.7 % (0.0-7.3); Platelet Count 332 K/mm3 (140-440); Red Blood Count 4.61 M/mm3 (3.65-5.03); Red Cell Distribution Width 14.7 % (13.2-15.2)
[2021-02-10 07:50] LABS: INR 0.93 (0.87-1.13)
[2021-02-10 07:51] LABS: Partial Thromboplastin Time 26.6 Sec. (24.2-36.6)
[2021-02-10 07:54] LABS: BUN/Creatinine Ratio 12; Blood Urea Nitrogen 11 mg/dL (7-17); Calcium 9.6 mg/dL (8.4-10.2); Hemolysis Index 0
[2021-02-10] MEDS ORDERED: SODIUM CHLORIDE 0.9% 500 ML 500 ML IV SCH (08:00)
[2021-02-10] MEDS ORDERED: HEPARIN/NS 5000 UNIT/500ML 1,000 ML IR ONE (09:37)
[2021-02-10] MEDS ORDERED: fentaNYL 100 MCG/2 ML INJ ONE (09:38)
[2021-02-10] MEDS ORDERED: HEPARIN 10,000 UNITS/10 ML VIAL ONE ×2 (09:38→10:58)
[2021-02-10] MEDS ORDERED: MIDAZOLAM 2 MG/2 ML INJ ONE (09:38)
[2021-02-10] MEDS ORDERED: VERAPAMIL 5 MG/2 ML INJ ONE (09:38)
[2021-02-10] MEDS ORDERED: LIDOCAINE (2%) 20 MG/1 ML VIAL 20 ML MDV INFILTRATI ONE ×2 (09:38→10:46)
[2021-02-10] MEDS ORDERED: NITROGLYCERIN SYRINGE 3 ML ONE ×2 (09:39→10:59)
[2021-02-10] MEDS ORDERED: fentaNYL 100 MCG/2 ML INJ IV ONE ×2 (10:39→10:46)
[2021-02-10] MEDS ORDERED: MIDAZOLAM 2 MG/2 ML INJ IV ONE ×2 (10:39→10:46)
[2021-02-10] MEDS ORDERED: HEPARIN 10,000 UNITS/10 ML VIAL IV ONE ×3 (11:00→11:27)
[2021-02-10] MEDS ORDERED: ATROPINE 0.1% (1 MG/10 ML) CARDIAC SYRINGE ONE (11:02)
[2021-02-10] MEDS ORDERED: NITROGLYCERIN 600 MCG/3 ML SYRINGE INTRA-CORO ONE ×2 (11:04→11:15)
[2021-02-10] MEDS ORDERED: TIROFIBAN/NS 12,500 MCG/250 ML BAG IV ONE (11:04)
[2021-02-10] MEDS ORDERED: TIROFIBAN 12.5 MG/250 ML BOLUS (50 MCG/ML) IV ONE (11:17)
[2021-02-10] MEDS ORDERED: CLOPIDOGREL 75 MG TAB ONE (11:20)
[2021-02-10] MEDS ORDERED: ALUM-MAG HYDROXIDE-SIMETHICONE 200-200-20MG/5ML ORAL LIQD 30 ML ONE (11:21)
[2021-02-10] MEDS ORDERED: CLOPIDOGREL 75 MG TAB PO ONE (11:45)
--- NOTE | 2021-02-10 11:54 | Cardiac Catherization Report ---
CARDIAC CATHETERIZATION AND CORONARY ANGIOPLASTY REPORT REASON FOR PROCEDURE: The patient is a 65-year-old woman with a prior history of coronary stent placement in the mid right coronary artery, presents with chest pain for outpatient cardiac catheterization. PROCEDURES: 1. Left heart catheterization. 2. Selective left and right coronary angiography. 3. Left ventricular angiography. 4. Coronary angioplasty and stenting of the right coronary artery. 5. Sedation time, start 10:39, end 11:19. I was present for the entire procedure and supervised the moderate sedation protocol. The patient was prepped and draped in a sterile fashion after informed consent. The right femoral artery was entered using Seldinger technique followed by placement of a 6-[place] sheath. Selective left and right coronary angiography was performed using #4 right and #4 left Josette catheters. The right Josette was used for left ventricular angiography. The angiograms were reviewed. CORONARY ANGIOGRAPHY: The left main coronary artery was free of significant disease. Left anterior descending artery and its diagonal branches contained mild luminal irregularities. The circumflex artery similarly contained diffuse mild atherosclerosis with no significant obstructive lesions. The right coronary artery was dominant. A stent was visible in the mid right coronary artery. The stented segment was widely patent with no significant in-stent restenosis. Proximal to the stented segment, there was a focal, 80% de bebeto stenosis of the proximal right coronary artery, followed by another long 75% stenosis of the mid segment, outside the previous stent. Left ventricular systolic function was at lower limits of normal with ejection fraction 50-55%. CORONARY ANGIOPLASTY: After review of the angiograms, we proceeded with coronary intervention to the proximal and mid right coronary artery, a de bebeto stenosis. We selected a #4 right Josette guiding catheter and advanced to the right coronary ostium. A 0.014 inch Mold Breaker 50 guidewire was introduced into the vessel, across the lesional segments. Predilatation balloon angioplasty was then performed using a 3.0 mm balloon catheter. Following pre-dilatation, a 3.0 x 15 mm drug-eluting stent was deployed to the mid segment, with overlap of the proximal segment of the previous stent. Following that, another 3.5 x 12 mm drug-eluting stent was deployed to the proximal vessel. Following the stent deployment, there was an excellent angiographic result, 0 residual stenosis and BART 3 flow was maintained down the vessel. The patient tolerated the procedure well and there were no complications. The catheters were removed, sheath removed, and hemostasis achieved using an Angio-Seal device. The patient was returned to the postprocedure unit in stable condition. CONCLUSION: 1. Coronary artery disease, as described above. 2. Patent previous mid right coronary artery stent. 3. Severe de bebeto stenosis of the proximal and mid segment of the right coronary artery outside the previous stented segment. 4. Successful ad hoc angioplasty and stenting with deployment of a serial, 3.0-3.5 mm drug-eluting stents. 5. Left ventricular systolic function at the lower limits of normal, ejection fraction 50-55%. JOB# [id number] CA/NTS
[2021-02-10] MEDS ORDERED: ACETAMINOPHEN 325 MG TAB PO PRN (12:55)
[2021-02-10] MEDS ORDERED: traMADol 50 MG TAB PO PRN (12:55)
[2021-02-10] MEDS ORDERED: ONDANSETRON 4 MG/2 ML INJ IV PRN (12:55)
[2021-02-10] MEDS ORDERED: ZOLPIDEM 5 MG TAB PO PRN (12:55)
[2021-02-10] MEDS ORDERED: TIROFIBAN/NS 12,500 MCG/250 ML BAG IV SCH (13:00)
[2021-02-10] MEDS ORDERED: SODIUM CHLORIDE 0.9% 1000 ML 1,000 ML IV SCH (13:00)
--- NOTE | 2021-02-10 13:01 | Event Note ---
Date: 02/10/21 Patient underwent outpatient cardiac catheterization for unstable angina, we found severe disease of the proximal and mid segments of the right coronary artery. Successful ad hoc coronary intervention with serial placement of 3.0 to 3.5 mm drug-eluting stents. Excellent angiographic result and no complications. See dictated report for procedure details. Patient will be admitted for 23-hour observation post intervention, anticipate discharge tomorrow morning.
[2021-02-10] MEDS: GABAPENTIN 300 MG CAP PO SCH ×2 (15:00→21:42)
[2021-02-10] MEDS: METOPROLOL TARTRATE 25 MG TAB PO SCH ×2 (18:00→21:46)
[2021-02-11] MEDS: GABAPENTIN 300 MG CAP PO SCH (05:59)
[2021-02-11 06:16] LABS: Basophils # (Auto) 0.1 K/mm3 (0.0-0.1); Basophils % (Auto) 0.5 % (0.0-1.8); Eosinophils # (Auto) 0.2 K/mm3 (0.0-0.4); Eosinophils % (Auto) 1.6 % (0.0-4.3); Hematocrit 37.6 % (30.3-42.9); Hemoglobin 12.8 gm/dl (10.1-14.3); Lymphocytes # (Auto) 3.6 K/mm3 (1.2-5.4); Lymphocytes % (Auto) 31.5 % (13.4-35.0); Mean Corpuscular HGB Conc 34 % (30-34); Mean Corpuscular Volume 95 fl (79-97); Monocytes # (Auto) 1.1 K/mm3 (0.0-0.8); Monocytes % (Auto) 9.8 % (0.0-7.3); Platelet Count 308 K/mm3 (140-440); Red Blood Count 3.98 M/mm3 (3.65-5.03); Red Cell Distribution Width 14.7 % (13.2-15.2)
[2021-02-11 06:39] LABS: BUN/Creatinine Ratio 14; Blood Urea Nitrogen 11 mg/dL (7-17); Hemolysis Index 7
--- NOTE | 2021-02-11 08:02 | XRay Report ---
CHEST 1 VIEW INDICATION: post pci. Chest pain. COMPARISON: 07/29/2019 FINDINGS: Support devices: None. Heart: Within normal limits. Lungs/Pleura: No acute air space or interstitial disease. Additional findings: None. IMPRESSION: No acute findings. Signer Name: Malick Castro Jr, MD Signed: 02/11/2021 7:57 AM Workstation Name: [id number]
[2021-02-11 08:45] VITALS: BP 126/62
[2021-02-11] MEDS ORDERED: CLOPIDOGREL 75 MG TAB PO SCH (10:00)
[2021-02-11] MEDS ORDERED: PARoxetine 20 MG TAB PO SCH (10:00)
[2021-02-11] MEDS ORDERED: ASPIRIN 81 MG TAB CHEW PO SCH (10:00)
[2021-02-11] MEDS ORDERED: NON-FORMULARY EACH (Paroxetine Hcl [Paroxetine] 40 MG Tablet) PO SCH (10:00)
[2021-02-11] MEDS: METOPROLOL TARTRATE 25 MG TAB PO SCH (10:47)
--- NOTE | 2021-02-11 10:50 | Short Stay Summary ---
Short Stay Documentation Date of service: 02/11/21 - History H&P: obtained from office - Allergies and Medications Current Medications: Allergies codeine Allergy (Verified 11/09/13 15:37) Vomiting Penicillins Allergy (Verified 11/09/13 15:37) Itching, HIVES Sulfa (Sulfonamide Antibiotics) Allergy (Verified 11/09/13 15:37) Itching HIVES Home Medications Medication Instructions Recorded Confirmed Last Taken Type Metoprolol Tartrate 25 mg PO BID 02/05/16 02/10/21 02/10/21 History Nitroglycerin [Nitrostat] 0.4 mg SL PRN PRN 02/05/16 02/10/21 2 Weeks Ago History ~01/27/21 PARoxetine HCL [PARoxetine] 40 mg PO DAILY 02/05/16 02/10/21 02/09/21 History Aspirin [Adult Aspirin] 81 mg PO DAILY 02/10/21 02/10/21 02/10/21 History Aspirin [Adult Aspirin] 81 mg PO DAILY 02/10/21 02/10/21 02/10/21 History AtorvaSTATin [Lipitor] 80 mg PO QHS 02/10/21 02/10/21 02/09/21 History Clopidogrel [Plavix] 75 mg PO QDAY 02/10/21 02/10/21 02/10/21 History Gabapentin [Neurontin] 300 mg PO Q8HR 02/10/21 02/10/21 02/10/21 History ISOSORBIDE MONOnitrate [Imdur ER] 120 mg PO QDAY 02/10/21 02/10/21 02/10/21 History Active Medications Acetaminophen (Acetaminophen 325 Mg Tab) 650 mg PO Q4H PRN PRN Reason: Pain MILD(1-3)/Fever >100.5/BULL Aspirin (Aspirin 81 Mg Tab Chew) 81 mg PO QDAY REPLACED BY [facility] Atorvastatin Calcium (Atorvastatin 40 Mg Tab) 80 mg PO QHS REPLACED BY [facility] Last Admin: 02/10/21 21:42 Dose: 80 mg Documented by: Clopidogrel Bisulfate (Clopidogrel 75 Mg Tab) 75 mg PO QDAY REPLACED BY [facility] Gabapentin (Gabapentin 300 Mg Cap) 300 mg PO Q8HR REPLACED BY [facility] Last Admin: 02/11/21 05:59 Dose: 300 mg Documented by: Isosorbide Mononitrate (Isosorbide Mononitrate Er 60 Mg Tab) 120 mg PO QDAY REPLACED BY [facility] Last Admin: 02/10/21 15:00 Dose: 120 mg Documented by: Metoprolol Tartrate (Metoprolol Tartrate 25 Mg Tab) 25 mg PO BID REPLACED BY [facility] Last Admin: 02/10/21 21:46 Dose: 25 mg Documented by: Ondansetron HCl (Ondansetron 4 Mg/2 Ml Inj) 4 mg IV Q8H PRN PRN Reason: N/V unrelieved by Reglan Paroxetine HCl (Paroxetine 20 Mg Tab) 40 mg PO DAILY REPLACED BY [facility] Tramadol HCl (Tramadol 50 Mg Tab) 50 mg PO Q4H PRN PRN Reason: Pain, Mild (1-3) Last Admin: 02/10/21 14:33 Dose: 50 mg Documented by: Zolpidem Tartrate (Zolpidem 5 Mg Tab) 5 mg PO QHS PRN PRN Reason: Sleep Last Admin: 02/10/21 21:47 Dose: 5 mg Documented by: - Physical exam General appearance: no acute distress HEENT: PERRLA Lungs: Clear to auscultation Heart: Normal S1, Normal S2, Other (sinus bradycardia rate 56) - Brief post op/procedure progress note Procedure: Patient underwent outpatient cardiac catheterization for unstable angina, we found severe disease of the proximal and mid segments of the right coronary artery. Successful ad hoc coronary intervention with serial placement of 3.0 to 3.5 mm drug-eluting stents. Excellent angiographic result and no complications. See dictated report for procedure details. Condition: stable - Hospital course Hospital course: Stable overnight observation. - Disposition Condition at discharge: Good Disposition: DC-01 TO HOME OR SELFCARE Short Stay Discharge Plan Activity: advance as tolerated Weight Bearing Status: Partial Weight Bearing Diet: low fat, low cholesterol, low salt Wound: open to air, keep clean and dry Follow up with: TREE FLEMING FNP [Primary Care Provider] - 7 Days GLYNN GRUBBS MD [Staff Physician] - 7 Days
== END 2021-02-11 15:04 | disposition home or self-care (01) ==
LOC: CATHLABREC 06:23 → 4A 12:55
PROVIDERS: ADMIT Internal Medicine Cardiovascular Disease; ATTEND Internal Medicine Cardiovascular Disease
DX: I20.9 Angina pectoris, unspecified (principal); I10 Essential (primary) hypertension; E78.5 Hyperlipidemia, unspecified; E66.9 Obesity, unspecified; K21.9 Gastro-esophageal reflux disease without esophagitis; F41.9 Anxiety disorder, unspecified; F32.9 Major depressive disorder, single episode, unspecified; F17.210 Nicotine dependence, cigarettes, uncomplicated; Z98.61 Coronary angioplasty status; Z79.82 Long term (current) use of aspirin; Z68.36 Body mass index [BMI] 36.0-36.9, adult
CPT/HCPCS: 36415; 71045; 80048; 84484; 85025; 85610; 85730; 93005; 93458; 96361; 96365; 96366; A9270; C1725; C1760; C1769; C1874; C1887; C1894; C9600; G0378; J0461; J1644; J2250; J3010; J3246; J7030; J7040; 85347; 92928; Q9967

== ENCOUNTER 2021-06-09 10:26 | Outpatient (CLI) | payer BC ==
--- NOTE | 2021-06-09 13:35 | XRay Report ---
Right foot-3 views INDICATION: PAIN IN RIGHT FOOT. COMPARISON: None. IMPRESSION: No acute osseous abnormality. Mild generalized swelling diffusely in the foot. Normal alignment. Moderate great toe MTP DJD. Signer Name: Yemi Chapa MD Signed: 06/09/2021 1:31 PM Workstation Name: [id number]
== END 2021-06-09 10:27 | disposition home or self-care (01) ==
LOC: XRAY 10:26
PROVIDERS: ATTEND Nurse Practitioner Family
DX: S99.921A Unspecified injury of right foot, initial encounter (principal); M19.071 Primary osteoarthritis, right ankle and foot; X58.XXXA Exposure to other specified factors, initial encounter; Y93.89 Activity, other specified; Y92.89 Other specified places as the place of occurrence of the external cause; Y99.8 Other external cause status

== ENCOUNTER 2021-08-12 09:39 | Outpatient (CLI) | payer BC ==
[2021-08-12 10:49] LABS: Chol/HDL Ratio 4.51 %
== END 2021-08-12 09:40 | disposition home or self-care (01) ==
LOC: LAB 09:39
PROVIDERS: ATTEND Internal Medicine Cardiovascular Disease
DX: I25.119 Atherosclerotic heart disease of native coronary artery with unspecified angina pectoris (principal)
CPT/HCPCS: 36415; 80061

== ENCOUNTER 2021-12-29 10:22 | Outpatient (CLI) | payer BC ==
[2021-12-29 11:08] LABS: Chol/HDL Ratio 3.65 %
--- NOTE | 2021-12-30 12:58 | Mammography Report ---
DIGITAL SCREENING MAMMOGRAM WITH CAD, 12/29/2021 CLINICAL INFORMATION / INDICATION: Routine screening mammography. SCREENING MAMMOGRAM TECHNIQUE: Digital bilateral 2D mammography was obtained in the craniocaudal and mediolateral obliqu e projections. This examination was interpreted with the benefit of Computer-Aided Detection analysis . COMPARISON: 12/08/2012 through 09/11/2020. FINDINGS: Breast Density: The breasts are heterogeneously dense, which may obscure small masses. No dominant mass, suspicious calcifications, or architectural distortion in either breast. IMPRESSION: No mammographic evidence of malignancy. Follow up recommendation: Routine yearly BI-RADS Category 1: NEGATIVE A "normal" or negative report should not discourage follow up or biopsy of a clinically significant f inding. A written summary of these findings will be mailed to the patient. The patient will be entered into a mammography reporting system which will generate a reminder letter for the patient's next appointmen t at the appropriate interval. The [employer] recommends yearly mammograms starting at age 40 and continuing as l jaron as a woman is in good health. Breast MRI is recommended for women with an approximate 20-25% or greater lifetime risk of breast cancer, including women with a strong family history of breast or ova serg cancer or who have been treated for Hodgkin's disease. Signer Name: Ab Cruz MD Signed: 12/30/2021 12:54 PM Workstation Name: [id number]
== END 2021-12-29 10:23 | disposition home or self-care (01) ==
LOC: MAMMO 10:22
PROVIDERS: ATTEND Physician Assistant
DX: Z12.31 Encounter for screening mammogram for malignant neoplasm of breast (principal)
CPT/HCPCS: 36415; 77067; 80061

== ENCOUNTER 2022-04-08 08:53 | Outpatient (CLI) | payer BC ==
[2022-04-08 09:47] LABS: Chol/HDL Ratio 3.58 %
== END 2022-04-08 08:54 | disposition home or self-care (01) ==
LOC: LAB 08:53
PROVIDERS: ATTEND Internal Medicine Cardiovascular Disease
DX: I25.119 Atherosclerotic heart disease of native coronary artery with unspecified angina pectoris (principal)
CPT/HCPCS: 36415; 80061